=== PATIENT | male | born 1955 | race Caucasian/White ===

== ENCOUNTER 2017-11-12 22:40 | Emergency (ER) | payer MEDICARE ==
--- NOTE | 2017-11-12 23:01 | ED Physician Documentation ---
Dyspnea - HISTORIAN Historian: patient - HPI Chief Complaint: Dyspnea Onset: days ago (intermittent) Duration: continues in ED Initiating Event: denies: upper respiratory illness, out of meds, exercise, environmental allergy Severity: moderate (spo2 = 99 room air) Exacerbated By: exertion, laying flat, coughing Associated Symptoms: denies: none Further Comments: yes (sleeps very warm room wears breathing strip on nose. pt says sob sig worse at noct) - ROS CONST: no problems, other (bulging disc rt lat lumbar pain-on disability) EYES/ENT: denies: problems with vision GI/: none MS/SKIN/LYMPH: back pain (bulg disc lumbar) - PAST HX Lung Disease: none, other (ch back kpain-disc bipolar depression anxiety htn ) PE Risk Factors: hypertension Surgeries/Procedures: none Allergies/Adverse Reactions: Allergies Allergy/AdvReac Type Severity Reaction Status Date / Time iodine Allergy Verified 11/12/17 22:58 Home Medications: Ambulatory Orders Medication Instructions Recorded Lisinopril [Prinivil] 40 mg PO D 08/27/14 [place] Carbonate [[place] 300 mg PO D 08/27/14 Carbonate] Paroxetine HCl [Paxil] 30 mg PO D 08/27/14 Aspirin [Adult Low Dose Aspirin EC] 81 mg PO DAILY 05/07/16 - SOCIAL HX Smoking History: non-smoker Alcohol Use: other (4 vodka per noct) Drug Use: none - FAMILY HX Family History: no significant history - VITAL SIGNS Vital Signs: Vital Signs Temp Pulse Resp BP Pulse Ox 164/92 05/07/16 09:20 - REVIEWED ASSESSMENTS Nursing Assessment Reviewed: Yes Vitals Reviewed: Yes ED Results Lab/Radiology - Radiology Radiology Impressions: cxr = no acute disease - Orders Orders: ED Orders Category Date Time Status CHEST 2 VIEW [CHEST P.A.&LAT 2 VIEWS] [RAD] Stat Exams 11/12/17 Ordered CHEST 2 VIEW [CHEST P.A.&LAT 2 VIEWS] [RAD] Stat Exams 11/12/17 Ordered Dyspnea Physical Exam - EXAM General Appearance: no acute distress EENT: eye inspection normal Neck: nml inspection Respiratory: no resp. distress, breath sounds nml, speaks full sentences. No: no pain on inspiration, respiratory distress, prolonged expirations, dull on percussion, accessory muscle use, decreased air movement, wheezes, rales, rhonchi, stridor CVS: reg. rate & rhythm, pulses equal Abdomen: No: non-tender Skin: color nml. No: no rash, cyanosis, diaphoresis, pallor, ecchymosis, skin rash Extremities: non-tender, normal range of motion, no edema Neuro/Psych: oriented x3, motor nml, sensation nml Discharge Clincal Impression: subjective dyspnea exp nocturnal, bedroom very warm and dry, hx htn dopression bipolar htn Referrals: Primary Doctor,No [Primary Care Provider] - 2 Days Comments: rec cool beddroom crack br window for fresh air-consider C-PAP Condition: Good Disposition: 01 HOME, SELF-CARE Decision to Admit: NO Decision Time: 23:26
[2017-11-12 23:09] VITALS: BP 146/69
--- NOTE | 2017-11-12 23:50 | Diagnostic Imaging Report ---
JAMI KENT [facility] [id number] [facility].[address] [id number] Report Submission Date: Nov 12, 2017 11:31:02 PM SAMPLE CHECKER Patient Study Name: MICHAEL SANDY Date: Nov 12, 2017 10:56:45 PM SAMPLE CHECKER Modality Type: CR Gender: M Description: CHEST : 51 Institution: [facility] Physician: JAMI KENT PA and lateral chest Clinical history: SOA Findings: Examination of the chest in PA and lateral views with no prior films for comparison demonstrates minimal infiltrate in the right base medially. The left lung is clear. Cardiac silhouette is prominent. Bony thorax is intact. Impression: 1. Right basilar infiltrate. Electronically signed on Nov 12, 2017 11:31:02 PM SAMPLE CHECKER by: Eliud UNDERWOOD
== END 2017-11-12 23:45 | disposition home or self-care (01) ==
LOC: ED 22:40
DX: R06.00 Dyspnea, unspecified (principal)
CPT/HCPCS: 71020; 99282; 99283